=== PATIENT | female | born 1960 | race Caucasian/White ===

== ENCOUNTER → 2017-06-14 | Outpatient (REF) | payer OTHER | LOC: M LAB REF 17:14 | PROVIDERS: ATTEND Obstetrics & Gynecology | DX: Z01.411 Encounter for gynecological examination (general) (routine) with abnormal findings (principal); Z11.51 Encounter for screening for human papillomavirus (HPV); N95.2 Postmenopausal atrophic vaginitis ==

== ENCOUNTER → 2018-06-16 | Outpatient (REF) | payer OTHER ==
[2018-06-18 14:10] LABS: HPV HYBRID CAPTURE II Negative (Negative)
== END ==
LOC: M LAB REF 13:56
DX: Z01.419 Encounter for gynecological examination (general) (routine) without abnormal findings (principal); Z11.51 Encounter for screening for human papillomavirus (HPV)
CPT/HCPCS: G0123

== ENCOUNTER → 2019-09-21 | Outpatient (REF) | payer OTHER | LOC: M SFHCWAGY 14:22 | PROVIDERS: ATTEND Obstetrics & Gynecology | DX: Z12.4 Encounter for screening for malignant neoplasm of cervix (principal); N95.2 Postmenopausal atrophic vaginitis | CPT/HCPCS: 87624; G0123 ==

== ENCOUNTER → 2020-09-14 | Outpatient (REF) | payer OTHER | LOC: M SFHCWAGY 17:03 | PROVIDERS: ATTEND Obstetrics & Gynecology | DX: Z12.4 Encounter for screening for malignant neoplasm of cervix (principal) ==

== ENCOUNTER → 2022-12-05 | Outpatient (REF) | payer OTHER | LOC: M SFHCWAGY 10:08 | PROVIDERS: ATTEND Obstetrics & Gynecology | DX: Z12.4 Encounter for screening for malignant neoplasm of cervix (principal); N95.2 Postmenopausal atrophic vaginitis ==

== ENCOUNTER → 2023-08-06 | Outpatient (CLI) | payer OTHER ==
[~2023-08-06] MED LIST: METHACHOLINE KIT INH ONE
== END ==
LOC: M CARPUL 09:25
PROVIDERS: ATTEND Physician Assistant
DX: R06.00 Dyspnea, unspecified (principal)
CPT/HCPCS: 94070; 95070; J7674

== ENCOUNTER → 2024-03-31 | Outpatient (REF) | payer OTHER ==
[2024-04-03 12:00] LABS: HPV APTIMA Not Detected (Not Detected)
== END ==
LOC: M SFHCWAGY 08:12
PROVIDERS: ATTEND Obstetrics & Gynecology
DX: R87.610 Atypical squamous cells of undetermined significance on cytologic smear of cervix (ASC-US) (principal)